=== PATIENT | male | born 1990 | race African-American/Black ===

== ENCOUNTER 2023-01-06 04:42 | Emergency (ER) | payer OTHER ==
[2023-01-06] MEDS ORDERED: KETOROLAC TROMETHAMINE 30 MG/1 ML VIAL IM ONE (05:16)
[2023-01-06] MEDS ORDERED: DEXAMETHASONE SOD PHOSPHATE 10 MG/1 ML VIAL IM ONE (05:16)
[2023-01-06 05:18] VITALS: BP 131/72; PULSE 44; RESP 18; TEMP 97.9; BMI 25.8
[2023-01-06 06:34] LABS: THROAT:GRP A STREP NOT DETECTED (NOTDETECTED)
== END 2023-01-06 05:47 | disposition home or self-care (01) ==
LOC: JER 04:42
PROC: 3E023GC Introduction of Other Therapeutic Substance into Muscle, Percutaneous Approach (ICD-10-PCS; principal; 2023-01-06)
PROC: 3E0233Z Introduction of Anti-inflammatory into Muscle, Percutaneous Approach (ICD-10-PCS; 2023-01-06)
DX: J02.9 Acute pharyngitis, unspecified (principal); R51.9 Headache, unspecified
CPT/HCPCS: 0241U-QW; 87651; 99284-25; J1100